=== PATIENT | male | born 1970 | race African-American/Black ===

== ENCOUNTER 2016-12-06 01:14 | Emergency (ER) | payer OTHER ==
[~2016-12-06] VITALS: Ht 180.3 cm; Wt 95.3 kg
[2016-12-06] MEDS ORDERED: NKM (01:27)
[2016-12-06 03:33] LABS: BASOPHILS % (AUTO) 0.8 % (0.0-2.0); EOSINOPHILS % (AUTO) 0.7 % (0.0-3.0); LYMPHOCYTES % (AUTO) 17.1 % (20.0-45.0); MEAN CORPUSCULAR HGB CONC 32.7 G/DL (32.0-36.0); MEAN CORPUSCULAR VOLUME 83 FL (80-99); MEAN PLATELET VOLUME 6.3 FL (6.5-10.1); NEUTROPHILS % (AUTO) 77.5 % (45.0-75.0); PLATELET COUNT 240 K/UL (150-450); RED BLOOD COUNT 5.61 M/UL (4.70-6.10); RED CELL DISTRIBUTION WIDTH 12.8 % (11.6-14.8); WHITE BLOOD COUNT 14.6 K/UL (4.8-10.8)
[2016-12-06 03:45] LABS: PROTHROMBIN TIME 10.3 SEC (9.30-11.50)
[2016-12-06 03:47] LABS: ALCOHOL 196 mg/dL; ANION GAP 15 (5-15); CALCIUM 9.2 mg/dL (8.6-10.2); CARBON DIOXIDE 26 mEQ/L (20-30); CHLORIDE 106 mEQ/L (98-107); CREATININE 1.3 mg/dL (0.7-1.2); GLOMERULAR FILTRATION RATE > 60 mL/min (>60); HEMOLYSIS 10; POTASSIUM 4.2 mEQ/L (3.4-4.9); SODIUM 147 mEQ/L (135-145)
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
[2016-12-06 04:10] VITALS: BP 136/78
[2016-12-06 04:26] VITALS: BP 136/78
[2016-12-06 04:35] LABS: APPEARANCE,URINE CLEAR; KETONES,URINE NEGATIVE (NEGATIVE); LEUKOCYTE ESTERASE ,URINE NEGATIVE (NEGATIVE); NITRITE,URINE NEGATIVE (NEGATIVE); PH,URINE 5 (4.5-8.0); PROTEIN,URINE 1+ (NEGATIVE); UROBILINOGEN,URINE NORMAL MG/DL (0.0-1.0)
[2016-12-06 04:39] LABS: BACTERIA,URINE OCCASIONAL /HPF; RBC,URINE 0-2 /HPF (0 - 0); SQUAMOUS EPITHELIAL CELL,UR OCCASIONAL /LPF (NONE/OCC); WBC,URINE 0-2 /HPF (0 - 0)
--- NOTE | 2016-12-06 10:23 | Diagnostic Imaging Report ---
Indication: Trauma Technique: Continuous helical transaxial imaging of the maxillofacial structures obtained without intravenous contrast administration. Coronal 2-D reformats were also obtained. Study obtained in a Siemens sensation [address] Total Dose length Product (DLP): [address] Dose Index Volume (CTDIvol): 28 mGy Comparison: None Findings: There is an acute minimally depressed fracture of the left orbital floor. The inferior rectus muscle is not well visualized as there is considerable hematoma surrounding the inferior aspect of the intraconal orbit. The retrobulbar hemorrhages associated with proptosis. There is moderate left periorbital soft tissue swelling as well. The globe itself is intact and appear symmetric. There is a moderate degree of blood within the left maxillary sinus has an air-fluid level. No other fractures are definitely identified. Small extraocular radiopaque foreign body demonstrated in the superomedial part of the left periorbital soft tissue. (Image 51, series 3) Impression: Acute, mildly depressed fracture floor of the left orbit with evidence of retrobulbar blood and associated moderate left proptosis. There are below a soft tissue contusion. Critical value communication. Findings were discussed via telephone with Dr. Bala Leonardo In the emergency department 12/06/16 at 02:47 by the [facility] physician. [facility] has communicated the preliminary results to the Emergency Department. Their findings are largely concordant with this report. at . The CT scanner at [facility] is accredited by the [employer] and the scans are performed using dose optimization techniques as appropriate to a performed exam including Automatic Exposure control.
--- NOTE | 2016-12-06 13:58 | Diagnostic Imaging Report ---
Indication: Trauma. Headache Technique: Contiguous 5 mm thick transaxial imaging of the head obtained in a Siemens Sensation [address] scanner. Soft tissue and bone windows generated. Total Dose length Product (DLP): [address] Dose Index Volume (CTDIvol): 70.38 mGy Comparison: none Findings: The size and configuration of the cortical sulci, basal cisterns, and ventricles are within normal limits for age. There is no mass effect, midline shift, or edema identified. There is no evidence of acute hemorrhage or abnormal intra-axial or extra-axial fluid collections. Significant left orbital trauma as discussed in the maxillofacial CT report Impression: No mass effect, edema or acute bleed. Please refer to the facial CT report [facility] has communicated the preliminary results to the Emergency Department. Their findings are largely concordant with this report. The CT scanner at [facility] is accredited by the [employer] and the scans are performed using dose optimization techniques as appropriate to a performed exam including Automatic Exposure control.
== END 2016-12-06 04:30 | disposition short-term general hospital (02) ==
LOC: EDBD 01:14 → EMR 01:45
DX: S02.32XA Fracture of orbital floor, left side, initial encounter for closed fracture (principal); F10.129 Alcohol abuse with intoxication, unspecified; Y04.2XXA Assault by strike against or bumped into by another person, initial encounter; Y93.9 Activity, unspecified; Y92.9 Unspecified place or not applicable; H05.20 Unspecified exophthalmos
CPT/HCPCS: 36415; 70450; 70486; 80048; 80300; 81001; 85025; 85610; 85730; 99285; G0480; 80329